=== PATIENT | male | born 1985 | race Two or more races ===

== ENCOUNTER 2017-05-28 17:43 | Emergency (ER) | payer SELFPAY ==
[~2017-05-28] VITALS: Ht 180.3 cm; Wt 90.0 kg
[2017-05-28] MEDS ORDERED: FLUORESCEIN SODIUM 1MG/STRIP OP ONE (22:15)
[2017-05-28] MEDS ORDERED: TETRACAINE 0.5% OPHTH DROPS 4ML OP ONE (22:15)
[2017-05-28] MEDS ORDERED: BALANCED SALT IRRIG SOLN 15ML IO ONE (22:15)
[2017-05-28] MEDS ORDERED: IBUPROFEN 600MG TABLET PO ONE (22:15)
[2017-05-28] MEDS ORDERED: SULFACETAMIDE SODIUM 10% OPHTH DROPS 15ML OP ONE (22:45)
[2017-05-28] MEDS ORDERED: HYDROCODONE/ACETAMINOPHEN 5/325MG TABLET PO ONE (22:45)
[2017-05-28 23:08] VITALS: BP 122/80
== END 2017-05-28 23:12 | disposition home or self-care (01) ==
LOC: ER 18:16
DX: S05.02XA Injury of conjunctiva and corneal abrasion without foreign body, left eye, initial encounter (principal); I10 Essential (primary) hypertension; F20.9 Schizophrenia, unspecified; F12.10 Cannabis abuse, uncomplicated; F90.9 Attention-deficit hyperactivity disorder, unspecified type; Z87.828 Personal history of other (healed) physical injury and trauma; W22.8XXA Striking against or struck by other objects, initial encounter; Y93.89 Activity, other specified; Y92.018 Other place in single-family (private) house as the place of occurrence of the external cause
CPT/HCPCS: 99283; Z7610